=== PATIENT | male | born 1980 | race Caucasian/White ===

== ENCOUNTER 2022-07-31 09:39 | Outpatient (CLI) | payer BC, SELFPAY | END 2022-07-31 09:40 | disposition home or self-care (01) | PROVIDERS: PCP Family Medicine; Visit Provider Family Medicine | DX: Z00.00 Encounter for general adult medical examination without abnormal findings (principal); E78.5 Hyperlipidemia, unspecified; C62.90 Malignant neoplasm of unspecified testis, unspecified whether descended or undescended; Z13.1 Encounter for screening for diabetes mellitus; Z13.0 Encounter for screening for diseases of the blood and blood-forming organs and certain disorders involving the immune mechanism | CPT/HCPCS: 80048; 80061; 82105; 84702; 84704 ==

== ENCOUNTER 2023-05-16 09:00 | Outpatient (CLI) | payer BC, SELFPAY | END 2023-05-16 09:01 | disposition home or self-care (01) | LOC: NFLDREF 05-17 10:21 | PROVIDERS: PCP Family Medicine; Referring Provider Family Medicine; Visit Provider Family Medicine | DX: C62.90 Malignant neoplasm of unspecified testis, unspecified whether descended or undescended (principal); R53.83 Other fatigue; R68.82 Decreased libido | CPT/HCPCS: 82105; 84403; 84443; 84704 ==

== ENCOUNTER 2023-11-14 15:02 | Outpatient (CLI) | payer BC, SELFPAY | END 2023-11-14 15:03 | disposition home or self-care (01) | PROVIDERS: PCP Family Medicine; Visit Provider Emergency Medicine | DX: R53.83 Other fatigue (principal) | CPT/HCPCS: 80053; 82607; 84443; 86140; 86618 ==

== ENCOUNTER 2024-02-12 12:52 | Outpatient (CLI) | payer BC, SELFPAY | END 2024-02-12 12:53 | disposition home or self-care (01) | LOC: NFLDREF 02-16 17:34 | PROVIDERS: PCP Family Medicine; Referring Provider Family Medicine; Visit Provider Family Medicine | DX: R53.83 Other fatigue (principal); E78.5 Hyperlipidemia, unspecified; R40.0 Somnolence | CPT/HCPCS: 80061 ==

== ENCOUNTER 2024-02-21 07:58 | Outpatient (CLI) | payer BC, SELFPAY ==
--- NOTE | 2024-02-21 08:15 | CRLHL7_ITS ---
For Patients: As a result of the Century Cures Act, medical imaging exams and procedure reports are released immediately into your electronic medical record. You may view this report before your referring provider. If you have questions, please contact your health care provider. Indication: Headaches. Technique: Noncontrast sagittal T1, axial FLAIR, T2, diffusion weighted sequences are provided. No comparisons. Findings: The ventricles, sulci and gyri are normal size, shape and contour for age. The midline structures are centrally located with no evidence of shift. There are no suspicious intra or extra-axial fluid collections. No region of restricted diffusion. Expected flow voids in the cavernous carotids and basilar artery. [id number] mucosal thickening within the floor of the maxillary sinuses with evidence of mucous retention cysts or polyps. Mild mucosal thickening within ethmoid and frontal sinuses. Impression: 1. No radiographic evidence of acute intracranial abnormalities. 2. Poly sinusitis. Dictated by Brett Talbert MD @ 02/21/2024 1:27:40 PM (Electronically Signed)
== END 2024-02-21 07:59 | disposition home or self-care (01) ==
PROVIDERS: PCP Family Medicine; Visit Provider Family Medicine
DX: R51.9 Headache, unspecified (principal); J32.9 Chronic sinusitis, unspecified; H92.02 Otalgia, left ear; M54.2 Cervicalgia; M50.21 Other cervical disc displacement, high cervical region
CPT/HCPCS: 70551

== ENCOUNTER 2024-02-21 08:35 | Outpatient (CLI) | payer BC, SELFPAY ==
--- NOTE | 2024-02-21 08:15 | CRLHL7_ITS ---
For Patients: As a result of the Century Cures Act, medical imaging exams and procedure reports are released immediately into your electronic medical record. You may view this report before your referring provider. If you have questions, please contact your health care provider. INDICATION: Neck pain TECHNIQUE: Noncontrast sagittal T1, T2, STIR and axial GRE sequences are provided. No comparisons. FINDINGS: The overall stature, alignment and intrinsic marrow signal of the cervical spine is within normal limits. Cervical cord is normal. C3-4: Minor disc osteophyte complex effaces the ventral thecal sac but results in no central canal narrowing. Mild uncovertebral joint hypertrophy results in minimal bilateral foraminal narrowing. Remainder of the cervical spine is unremarkable, specifically no evidence of suspicious central canal or foraminal narrowing. IMPRESSION: 1. Minor degenerative changes at C3-4 resulting in no significant central canal narrowing with minimal bilateral foraminal narrowing. 2. Otherwise, unremarkable MRI of the cervical spine. Dictated by Brett Talbert MD @ 02/21/2024 1:29:09 PM (Electronically Signed)
== END 2024-02-21 08:36 | disposition home or self-care (01) ==
LOC: MRI 08:35
PROVIDERS: PCP Family Medicine; Visit Provider Family Medicine
DX: M54.2 Cervicalgia (principal); M50.21 Other cervical disc displacement, high cervical region; R51.9 Headache, unspecified; J32.8 Other chronic sinusitis
CPT/HCPCS: 72141

== ENCOUNTER 2024-03-17 09:00 | Outpatient (CLI) | payer BC, SELFPAY ==
--- NOTE | 2024-04-15 08:11 | W.PM.SLEEP ---
Sleep Study Details Details Interpreting Provider: Miguel Date of Sleep Study: 03/17/24 Sleep Study Details: STUDY TYPE:? Home unattended ? BMI:? 23.2 ORDERING PROVIDER:? Miguel INDICATION:? Concerned about sleep apnea ? SLEEP SUMMARY:? 542 minutes monitored RESPIRATORY SUMMARY:? AHI 2.8 Low oxygen 85 1.2% of study oxygen less than 90% Snoring 94.5% PERIODIC LIMB MOVEMENTS OF SLEEP:? Not recorded CARDIAC:? Range 48-100, mean 63.5 beats per minute IMPRESSION:? Primary snoring. The overall AHI is within normal limits at 2.8. There was significant desaturation however was 1.2% of the study oxygen less than 90% RECOMMENDATION: If sleep disorder is strongly suspected an in-lab study is recommended.
== END 2024-03-17 09:01 | disposition home or self-care (01) ==
LOC: SLEEP 09:00
PROVIDERS: PCP Family Medicine; Visit Provider Otolaryngology
DX: R06.83 Snoring (principal); G47.19 Other hypersomnia
CPT/HCPCS: 95806

== ENCOUNTER 2024-07-04 10:09 | Outpatient (CLI) | payer BC, SELFPAY | END 2024-07-04 10:10 | disposition home or self-care (01) | PROVIDERS: PCP Family Medicine; Visit Provider Family Medicine | DX: C62.90 Malignant neoplasm of unspecified testis, unspecified whether descended or undescended (principal) | CPT/HCPCS: 82105; 84702; 84704 ==